=== PATIENT | female | born 1945 | race Caucasian/White ===

== ENCOUNTER → 2021-05-25 | Outpatient (CLI) | payer MEDICARE, OTHER ==
[~2021-05-25] MED LIST: APAP500 PO; ASPIR 8181 MG PO; ATORVASTATIN CA40 MG PO; BRILINTA90 MG PO; CLORAZEPATE DI7.5 M2 PO; CO Q-10100 MG PO; CRESTOR10 MG PO; CRESTOR5 MG PO; CYCLOBENZAPRINE5 MG PO; FISH OIL 1,001000 M2 PO; FLECAINIDE ACET50 M2 PO; Fish oil PO; LEVOTHYROXIN0.075 MG PO; LEVOTHYROXIN0.112 M1 PO; LIPITOR 40 MG T40 M1 PO; LIPITOR10 MG; LIPITOR20 MG PO; LISINOPRIL10 MG PO; LOPRESSOR25 PO; LOPRESSOR50 PO; NITROGLYCERIN0.4 MG SUBLING; PEPCID AC10 MG PO; PEPCID20 MG PO; PRILOSEC20 MG PO; QUINAPRIL 20 MG20 MG PO; QUINAPRIL HCL40 MG PO; QUINU10 PD PO; TOPROL XL25 MG PO; VOLTAREN GEL 1100 G2 TOP; WELLBUTRIN XL150 MG PO
--- NOTE | 2021-05-25 13:55 | 2DMMODE ---
[place] [address] 2 D/M-MODE ECHOCARDIOGRAM Name: GENO RUIZ César Room: [facility]#: [id number] Admission: 05/25/21 Attend Phys: Tessy Gonzalez, Discharge: Date of : 41 Date of Service: 05/25/21 1355 Report #: [id number] THIS REPORT FOR: cc: Andria Kenney MD, Pamela MD Liston, Michael J. MD [facility] ~ APPROVED REPORT Study performed: 05/25/2021 12:43:38 EXAM: Comprehensive 2D, Doppler, and color-flow Echocardiogram Patient Location: Out-Patient BSA: 1.65 HR: 80 bpm BP: 122/68 mmHg Other Information Study Quality: Good Indications Atrial Fibrillation 2D Dimensions IVSd: 8.24 (7-11mm) LVOT Diam: 19.55 (18-24mm) LVDd: 34.61 mm PWd: 8.47 (7-11mm) Ascending Ao: 23.50 (22-36mm) LVDs: 20.56 (25-40mm) Aortic Root: 26.82 mm Volumes Left Atrial Volume (Systole) LA ESV Index: 26.60 mL/m2 Aortic Valve AoV Peak Demond.: 1.08 m/s AO Peak Gr.: 4.63 mmHg LVOT Max P.43 mmHg AO Mean Gr.: 2.79 mmHg LVOT Mean P.22 mmHg LVOT Max V: 1.05 m/s AO V2 VTI: 18.18 cm LVOT Mean V: 0.68 m/s OMAR (VTI): 2.95 cm2 LVOT V1 VTI: 17.85 cm Mitral Valve MV Decel. Time: 203.05 [place] [address] 2 D/M-MODE ECHOCARDIOGRAM Name: GENO RUIZ Room: [facility]#: [id number] Admission: 05/25/21 Attend Phys: Tessy Gonzalez, Discharge: Date of : 41 Date of Service: 05/25/21 1355 Report #: [id number] MV E Max Demond.: 0.99 m/s MV PHT: 58.88 ms MVA (PHT): 3.74 cm2 TDI E/Lateral E': 7.62 E/Medial E': 8.25 Medial E' Demond.: 0.12 m/s Lateral E' Demond.: 0.13 m/s Pulmonary Valve PV Peak Demond.: 0.82 m/s PV Peak Gr.: 2.70 mmHg Tricuspid Valve RAP Estimate: 5.00 mmHg TR Peak Gr.: 26.23 mmHg RVSP: 31.23 mmHg PA Pressure: 31.23 mmHg Left Ventricle The left ventricle is normal size. There is normal LV segmental wall motion. There is normal left ventricular wall thickness. Left ventricular systolic function is normal. LVEF is 65-70%. Moderate diastolic dysfunction is present (pseudonormal filling). Right Ventricle The right ventricle is normal size. The right ventricular systolic function is normal. Atria The left atrium size is normal. The right atrium size is normal. Aortic Valve The aortic valve is normal in structure. No aortic regurgitation is present. There is no aortic valvular stenosis. Mitral Valve The mitral valve is normal in structure. There is no mitral valve regurgitation noted. No evidence of mitral valve stenosis. Tricuspid Valve The tricuspid valve is normal in structure. Mild tricuspid regurgitation. The RVSP is 30-35 mmHg. Pulmonic Valve The pulmonary valve is normal in structure. Mild [place] [address] 2 D/M-MODE ECHOCARDIOGRAM Name: GENO RUIZ Room: [facility]#: [id number] Admission: 05/25/21 Attend Phys: Tessy Gonzalez, Discharge: Date of : 41 Date of Service: 05/25/21 1355 Report #: [id number] Great Vessels The aortic root is normal in size. IVC is normal in size and collapses >50% with inspiration. Pericardium There is no pericardial effusion. <Conclusion> The left ventricle is normal size. There is normal left ventricular wall thickness. Left ventricular systolic function is normal. LVEF is 65-70%. Moderate diastolic dysfunction is present (pseudonormal filling). Mild tricuspid regurgitation. The RVSP is 30-35 mmHg. IVC is normal in size and collapses >50% with inspiration. <ELECTRONICALLY SIGNED> By: Yahir Aragon MD, FACC 05/25/21 1355 1355 1355 Yahir Aragon MD, FACC /INF
== END ==
LOC: M.CRD 12:58
PROVIDERS: ATTEND Nurse Practitioner
DX: I08.8 Other rheumatic multiple valve diseases (principal); R55 Syncope and collapse; I48.92 Unspecified atrial flutter